=== PATIENT | female | born 2000 | race Hispanic/Latino ===

== ENCOUNTER 2023-07-23 10:44 | Emergency (ER) | payer BC ==
[2023-07-23] MEDS ORDERED: Lidocaine 1% PF 5 ML VIAL ONE (12:56)
[2023-07-23] MEDS ORDERED: Bacitracin 1 PK ONE (14:39)
[2023-07-23] MEDS ORDERED: Boostrix 0.5 ML (Tdap) VIAL (>/=7 yrs of age) ONE (14:40)
== END 2023-07-23 14:51 | disposition home or self-care (01) ==
LOC: ERS 10:44
DX: S61.213A Laceration without foreign body of left middle finger without damage to nail, initial encounter (principal); J45.909 Unspecified asthma, uncomplicated; W26.0XXA Contact with knife, initial encounter; Y93.89 Activity, other specified; Z23 Encounter for immunization; Z79.899 Other long term (current) drug therapy
CPT/HCPCS: 64450; 90471; 90715